=== PATIENT | female | born 1930 | race Caucasian/White ===

== ENCOUNTER 2017-11-28 11:32 | Inpatient (IN) ==
[2017-11-28] MEDS ORDERED: Melatonin 5 MG Tablet PO PRN (15:21)
[2017-11-28] MEDS ORDERED: Aluminum/Magnesium/Simethacone Susp 30 ML UDC PO PRN (15:21)
[2017-11-28] MEDS: Acetaminophen 325 MG Tablet PO PRN (21:00)
[2017-11-29 09:03] LABS: Calcium 8.7 mg/dL (8.5-10.1); Carbon Dioxide 28.2 meq/L (21.0-32.0); Potassium 4.5 meq/L (3.5-5.1)
[2017-11-29 09:07] LABS: Chol/HDL Ratio 4.26 Ratio; HDL Cholesterol 28.4 mg/dL (40.0-60.0)
[2017-11-29] MEDS: Acetaminophen 325 MG Tablet PO PRN ×3 (09:07→23:06)
[2017-11-29] MEDS: Furosemide 20 MG Tablet PO SCH (09:07)
[2017-11-29] MEDS: Spironolactone 25 MG Tablet PO SCH (09:09)
[2017-11-29] MEDS: Docusate Sodium 100 MG Capsule PO SCH (09:09)
--- NOTE | 2017-11-29 12:25 | P.HPPSY ---
Provisional Diagnosis Admission Date: November 28, 2017 15:12 Competence Certification of Person's Competence To Provide Express and Informed Consent I have personally examined Sindi Roblero, a person being served at [facility] on, November 29, 2017 1221. Express and informed consent means consent voluntarily given in writing, by a competent person, after sufficient explanation and disclosure of the subject matter involved to enable the person to make a knowing and willful decision without any element of force, fraud, deceit, duress, or other form of constraint or coercion. This person is 18 years of age or older, is not now known to be incompetent to consent to treatment with a guardian advocate, and does not have a health care surrogate or proxy currently making medical treatment decisions. I have found this person to be one of the following: [] Competent to provide express and informed consent, as defined above, for voluntary admission to this facility and is competent to provide express and informed consent for treatment. He/she has the consistent capacity to make well reasoned, willful, and knowing decisions concerning his or her medical or mental health treatment. The person fully and consistently understands the purpose of the admission for examination/placement and is fully capable of personally exercising all rights assured [place] [] Incompetent to provide express and informed consent to voluntary admission, and this is incompetent to provide express and informed consent to treatment. The person must be transferred to involuntary status and a petition for a guardian advocate filed with the Circuit Court. [X] Refusing to provide express and informed consent to voluntary admission but is competent to provide express and informed consent for treatment. The person must be discharged or transferred to involuntary status. Form shall be completed within 24 hours of a person's arrival at the receiving facility and filed in the clinical record of each person: 1. Admitted on a voluntary basis 2. Permitted to provide express and informed consent to his/her own treatment 3. Allowed to transfer from involuntary to voluntary status 4. Prior to permitting a person to consent to his or her own treatment after having been previously found incompetent to consent to treatment. History of Present Illness Capacity: Has capacity Chief Complaint: see below History of Present Illness: Patient is an 87-year-old female admitted for a suicidal gesture. Per record [facility] at home she placed the drill next her heart and said she wanted to . Today, patient says she was in a fog he does not remember that event. She denies a psychiatric history. Denies any history of suicide attempts. Says she has been feeling mildly confused lately. Memory not formally evaluated that she is oriented 3 though slow to respond to this interview. She denies recent depressed mood, low energy. She does admit to poor sleep. past psych: denies - Inpatient Certification I certify that the inpatient services were ordered in accordance with Medicare regulations governing the order. This includes certification that hospital inpatient services are reasonable and necessary and in the case of services not specified as inpatient-only under 42 CFR 419.22(n), that they are appropriately provided as inpatient services in accordance to with the 2-midnight benchmark under 43 CFR 412.3(e) I certify that inpatient psychiatric hospital services are medically necessary. Evaluation and treatment and/or diagnostic testing are expected to improve the patient's condition. The patient needs on a daily basis, active treatment furnished directly by or requiring the supervision of inpatient psychiatric facility personnel. Estimated Total Length of Stay (Days): 7 Plans for Post Hospital Care: Not yet determined PMF - History History Provided By: Patient - Tobacco History Second Hand Smoke Exposure: No Smoking Status: Never smoker - Alcohol History How Often Do You Have a Drink Containing Alcohol: Never - Substance Use History Substance History: No History of Abuse - Travel History Recent Travel in the [place] Within the Last 8 Weeks: No Recent Travel Out of the Country Within the Last 8 Weeks: No Medications and Allergies Active Medications: Active Medications Acetaminophen (Tylenol) 650 mg PO Q4H PRN PRN Reason: PAIN 1-10 AND/OR FEVER >101F Last Admin: 11/29/17 09:07 Dose: 650 mg Al Hydrox/Mg Hydrox/Simethicone (Mag-Al Plus Susp Liq) 30 ml PO Q6H PRN PRN Reason: DYSPEPSIA Al Hydroxide/Mg Hydroxide (Milk Of Magnesia Liq) 30 ml PO Q12H PRN PRN Reason: Mild Constipation Last Admin: 11/29/17 11:02 Dose: 30 ml Al Hydroxide/Mg Hydroxide (Milk Of Magnesia Liq) 30 ml PO DAILY PRN PRN Reason: Constipation Carvedilol (Coreg) 3.125 mg PO BID [facility] Last Admin: 11/29/17 09:10 Dose: 3.125 mg Diphenhydramine HCl (Benadryl) 25 mg PO HS PRN PRN Reason: INSOMNIA Last Admin: 11/28/17 21:01 Dose: 25 mg Docusate Sodium (Colace) 100 mg PO DAILY [facility] Last Admin: 11/29/17 09:09 Dose: 100 mg Fluticasone Propionate (Flonase Nasal [place]) 2 spray EACH NARE DAILY [facility] Last Admin: 11/29/17 09:10 Dose: 2 spray Furosemide (Lasix) 20 mg PO DAILY [facility] Last Admin: 11/29/17 09:07 Dose: 20 mg Losartan Potassium (Cozaar) 25 mg PO BID [facility] Last Admin: 11/29/17 09:10 Dose: 25 mg Spironolactone (Aldactone) 12.5 mg PO DAILY [facility] Last Admin: 11/29/17 09:09 Dose: 12.5 mg Allergies Allergy/AdvReac Type Severity Reaction Status Date / Time codeine Allergy Mild Unverified 10/28/16 17:19 ENVIRONMENTAL Allergy Mild Uncoded 09/27/06 23:17 No Known Allergies Allergy Mild Uncoded 09/27/06 23:15 Home Medications Medication Instructions Recorded Confirmed Type carvedilol 3.125 mg PO BID 11/28/17 11/28/17 History docusate sodium 100 mg PO DAILY 11/28/17 11/28/17 History fluticasone 2 spray INTRANASAL DAILY 11/28/17 11/28/17 History furosemide 20 mg PO DAILY 11/28/17 11/28/17 History hydrocodone-acetaminophen 1 tab PO Q4H PRN 11/28/17 11/28/17 History losartan 25 mg PO BID 11/28/17 11/28/17 History magnesium hydroxide [Milk of 30 ml PO DAILY PRN 11/28/17 11/28/17 History Magnesia] polyethylene glycol 3350 17 g PO Q4HR 11/28/17 11/28/17 History spironolactone 12.5 mg PO DAILY 11/28/17 11/28/17 History tuberculin PPD [Tubersol] WEEKLY 11/28/17 History Results - Labs CBC & Chem 7: 11/29/17 07:21 Labs: Laboratory Results - last 24 hr 11/29/17 07:21 Sodium 139 Potassium 4.5 Chloride 104 Carbon Dioxide 28.2 Anion Gap 7 BUN 19 H Creatinine 1.03 H Estimated GFR 51 L Random Glucose 86 Calcium 8.7 Triglycerides 121 Cholesterol 121 LDL Cholesterol, Calc 68 HDL Cholesterol 28.4 L Cholesterol/HDL Ratio 4.26 Exam Vital signs: Vital Signs 11/28/17 17:39 11/29/17 05:44 Temperature 97.3 F L 98.8 F Pulse Rate 73 71 Respiratory Rate 18 18 Blood Pressure 115/59 L 140/68 Pulse Oximetry 98 98 Intake & Output 11/28/17 11/29/17 11/29/17 18:59 06:59 18:59 Weight 58.513 kg Other: Weight On Admission 58.5 kg Mental Status Examination Appearance: Disheveled Consciousness: Alert Orientation: Person, Place, Date/Time Motor Activity: Normal gait Speech: Unremarkable Language: Adequate Fund of Knowledge: Adequate Attention and Concentration: Adequate Memory: Unremarkable Mood: Anxious Affect: Anxious Thought Process & Associations: Disorganized Thought Content: Appropriate Hallucination Type: None Delusion Type: None Suicidal Ideation: No Suicidal Plan: No Suicidal Intention: No Homicidal Ideation: No Homicidal Plan: No Homicidal Intention: No Insight: Poor Judgment: Poor Assessment and Plan - Assessment (1) Major depressive disorder, single episode, severe without psychotic features Code(s): F32.2 - Major depressive disorder, single episode, severe without psychotic features Status: Acute - Plan Plan: Estimated LOS: [] days Patient gives consent for remeron 7.5mg po qhs. For sleep and possible depression. Justification for Continued Inpatient Stay: Patient would decompensate in a less restrictive setting
--- NOTE | 2017-11-29 15:38 | P.CON ---
History of Present Illness Service: [facility] Consult date: 11/29/17 Requesting Physician: Guerrero Parker Reason for Consult: CHF, Primary Care Provider: UNKNOWN Chief Complaint: I have not been sleeping History of Present Illness: Patient is an 87-year-old female with past medical history of CHF, EF of 30-35% , anemia, HTN, DM 2, cardiomyopathy, GERD who initially came in to [facility] under [place] act secondary to suicidal ideation. Per review of record patient is attempting to put a drill on her heart and making statements of wanting to hurt herself/kill herself. She is now admitted to inpatient psychiatry unit for further evaluation. Consulted for assistance with medical management. Review of records from previous hospital, UDS negative, UA negative, TSH within normal Chest x-ray showed cardiomegaly with interstitial edema Patient on Lasix and spironolactone. Patient seen and examined today. Reports she is doing well. States that she has not been sleeping for a while but probably contributed to her saying she wanted to kill herself. States she has diabetes but been managing it with dietary modification. Denies any SI/HI. Denies pain and discomfort. Denies SOB/ dyspnea. Denies chest pain, palpitations, headaches, dizziness. Denies fevers, chills, n/v/d. Denies dysuria. Review of Systems All other systems reviewed negative except as stated in HPI PMFSH - History History Provided By: Patient - Medical History Medical History: Medical History (Last Updated 11/29/17 @ 15:34 by VAUGHN Castro) CHF (congestive heart failure) DM2 (diabetes mellitus, type 2) GERD (gastroesophageal reflux disease) HTN (hypertension) - Surgical History Surgical History: Surgical History (Last Updated 11/29/17 @ 16:29 by VAUGHN Castro) History of throat surgery - Family History Family History: Family History (Last Updated 11/29/17 @ 15:35 by VAUGHN Castro) Other ETOH abuse - Social History I have reviewed the patient's Social History: Yes - Tobacco History Second Hand Smoke Exposure: No Smoking Status: Former smoker Number of Pack Years (if former smoker): 20 (Quit 40years ago) - Alcohol History How Often Do You Have a Drink Containing Alcohol: Never - Substance Use History Substance History: No History of Abuse - Travel History Recent Travel in the [facility] Within the Last 8 Weeks: No Recent Travel Out of the Country Within the Last 8 Weeks: No Medications and Allergies Active Medications: Active Medications Acetaminophen (Tylenol) 650 mg PO Q4H PRN PRN Reason: PAIN 1-10 AND/OR FEVER >101F Last Admin: 11/29/17 09:07 Dose: 650 mg Al Hydrox/Mg Hydrox/Simethicone (Mag-Al Plus Susp Liq) 30 ml PO Q6H PRN PRN Reason: DYSPEPSIA Al Hydroxide/Mg Hydroxide (Milk Of Magnesia Liq) 30 ml PO Q12H PRN PRN Reason: Mild Constipation Last Admin: 11/29/17 11:02 Dose: 30 ml Al Hydroxide/Mg Hydroxide (Milk Of Magnesia Liq) 30 ml PO DAILY PRN PRN Reason: Constipation Carvedilol (Coreg) 3.125 mg PO BID [facility] Last Admin: 11/29/17 09:10 Dose: 3.125 mg Diphenhydramine HCl (Benadryl) 25 mg PO HS PRN PRN Reason: INSOMNIA Last Admin: 11/28/17 21:01 Dose: 25 mg Docusate Sodium (Colace) 100 mg PO DAILY [facility] Last Admin: 11/29/17 09:09 Dose: 100 mg Fluticasone Propionate (Flonase Nasal [place]) 2 spray EACH NARE DAILY [facility] Last Admin: 11/29/17 09:10 Dose: 2 spray Furosemide (Lasix) 20 mg PO DAILY [facility] Last Admin: 11/29/17 09:07 Dose: 20 mg Losartan Potassium (Cozaar) 25 mg PO BID [facility] Last Admin: 11/29/17 09:10 Dose: 25 mg Mirtazapine (Remeron) 7.5 mg PO [facility] Spironolactone (Aldactone) 12.5 mg PO DAILY [facility] Last Admin: 11/29/17 09:09 Dose: 12.5 mg Allergies Allergy/AdvReac Type Severity Reaction Status Date / Time codeine Allergy Mild Unverified 10/28/16 17:19 ENVIRONMENTAL Allergy Mild Uncoded 09/27/06 23:17 No Known Allergies Allergy Mild Uncoded 09/27/06 23:15 Home Medications Medication Instructions Recorded Confirmed Type carvedilol 3.125 mg PO BID 11/28/17 11/28/17 History docusate sodium 100 mg PO DAILY 11/28/17 11/28/17 History fluticasone 2 spray INTRANASAL DAILY 11/28/17 11/28/17 History furosemide 20 mg PO DAILY 11/28/17 11/28/17 History hydrocodone-acetaminophen 1 tab PO Q4H PRN 11/28/17 11/28/17 History losartan 25 mg PO BID 11/28/17 11/28/17 History magnesium hydroxide [Milk of 30 ml PO DAILY PRN 11/28/17 11/28/17 History Magnesia] polyethylene glycol 3350 17 g PO Q4HR 11/28/17 11/28/17 History spironolactone 12.5 mg PO DAILY 11/28/17 11/28/17 History tuberculin PPD [Tubersol] WEEKLY 11/28/17 History Physical Exam Vital signs: Vital Signs 11/28/17 17:39 11/29/17 05:44 Temperature 97.3 F L 98.8 F Pulse Rate 73 71 Respiratory Rate 18 18 Blood Pressure 115/59 L 140/68 Pulse Oximetry 98 98 Intake & Output 11/28/17 11/29/17 11/29/17 18:59 06:59 18:59 Weight 58.513 kg Other: Weight On Admission 58.5 kg Narrative: GENERAL: This is a well-nourished, well-developed patient, in no apparent distress. SKIN: Warm and dry HEENT: Normocephalic. Pupils equal round and reactive. Nose without bleeding. Airway patent. NECK: Trachea midline. CARDIOVASCULAR: Regular rate and rhythm without murmurs, gallops, or rubs. RESPIRATORY: Clear to auscultation. Breath sounds equal bilaterally. No wheezes , rales, or rhonchi. GASTROINTESTINAL: Abdomen soft, non-tender, nondistended. Bowel Sounds normoactive x4. MUSCULOSKELETAL: Extremities without clubbing, cyanosis, or edema. NEUROLOGICAL: Awake and alert. No focal neuro deficit. Moves all extremities. Normal speech. Assessment and Plan - Plan Patient is an 87-year-old female with past medical history of CHF, EF of 30-35% , anemia, HTN, DM 2, cardiomyopathy, GERD who initially came in to [facility] under [place] secondary to suicidal ideation. Per review of record patient is attempting to put a drill on her heart and making statements of wanting to hurt herself/kill herself. She is now admitted to inpatient psychiatry unit for further evaluation. Consulted for assistance with medical management. SI, Depression -Managed by psychiatry team Congestive heart failure, EF 30-35% Cardiomyopathy HTN -Per review of record from previous hospital UDS negative, UA negative, TSH within normal -Per review of records from previous hospital chest x-ray showed cardiomegaly with interstitial edema -Continue Lasix, spironolactone -Continue home medication -Monitor BMP -Monitor for worsening condition Acute renal insufficiency -Possibly secondary to Lasix and spironolactone use -Avoid other nephrotoxins -Monitor renal indicis Anemia, possibly of chronic disease Microcytic -Monitor H&H intermittently Borderline diabetes -Hemoglobin A1c 6.0 -Patient wanted to be on diabetic diet DVT prop, early ambulation Code Status: Full code Discussed Condition With: Patient, nurse Discharge Planning: DC disposition by primary team
[2017-11-29] MEDS: Mirtazapine 15 MG Tablet PO SCH (20:42)
[2017-11-30] MEDS: Acetaminophen 325 MG Tablet PO PRN ×2 (06:44→11:59)
[2017-11-30] MEDS: Spironolactone 25 MG Tablet PO SCH (10:12)
[2017-11-30] MEDS: Docusate Sodium 100 MG Capsule PO SCH (10:12)
[2017-11-30] MEDS: Furosemide 20 MG Tablet PO SCH (10:12)
[2017-11-30] MEDS: Escitalopram 10 MG Tablet PO SCH (11:59)
--- NOTE | 2017-11-30 14:40 | P.PN ---
Subjective Interval history: Follow-up visit CHF, GERD, HTN. Patient seen and examined today sitting in a chair. Reports she is doing okay. Discussed with patient elevated BP this a.m. states that he took all the medications that have given her. Repeat her blood pressure while sitting in the chair. BP 144/74. Denies pain and discomfort. Denies SOB/ dyspnea. Denies chest pain, palpitations, headaches, dizziness. Denies fevers, chills, n/v/d. Denies dysuria. Physical Exam Vital signs: Vital Signs 11/30/17 06:00 Temperature 97.7 F Pulse Rate 74 Respiratory Rate 18 Blood Pressure 173/73 H Pulse Oximetry 97 Intake & Output 11/29/17 11/30/17 11/30/17 18:59 06:59 18:59 Intake Total 600 / 600 Balance 600 / 600 Weight 61 kg Intake: Oral 600 / 600 Narrative: GENERAL: This is a well-nourished, well-developed patient, in no apparent distress. SKIN: Warm and dry HEENT: Normocephalic. Pupils equal round and reactive. Nose without bleeding. Airway patent. NECK: Trachea midline. CARDIOVASCULAR: Regular rate and rhythm without murmurs, gallops, or rubs. RESPIRATORY: Clear to auscultation. Breath sounds equal bilaterally. No wheezes , rales, or rhonchi. GASTROINTESTINAL: Abdomen soft, non-tender, nondistended. Bowel Sounds normoactive x4. MUSCULOSKELETAL: Extremities without clubbing, cyanosis, or edema. NEUROLOGICAL: Awake and alert. No focal neuro deficit. Moves all extremities. Normal speech. Results - Labs CBC & Chem 7: 11/29/17 07:21 Assessment and Plan - Plan Patient is an 87-year-old female with past medical history of CHF, EF of 30-35% , anemia, HTN, DM 2, cardiomyopathy, GERD who initially came in to [facility] under [place] [facility] secondary to suicidal ideation. Per review of record patient is attempting to put a drill on her heart and making statements of wanting to hurt herself/kill herself. She is now admitted to inpatient psychiatry unit for further evaluation. Consulted for assistance with medical management. SI, Depression -Managed by psychiatry team Congestive heart failure, EF 30-35% Cardiomyopathy HTN -Per review of record from previous hospital UDS negative, UA negative, TSH within normal -Per review of records from previous hospital chest x-ray showed cardiomegaly with interstitial edema -Continue Lasix, spironolactone -Continue home medication -Clonidine PRN added, hypertensive this am -Monitor BP trend. Acute renal insufficiency -Possibly secondary to Lasix and spironolactone use -Avoid other nephrotoxins -Monitor renal indicis Anemia, possibly of chronic disease Microcytic -Monitor H&H intermittently Borderline diabetes -Hemoglobin A1c 6.0 -Patient wanted to be on diabetic diet DVT prop, early ambulation Code Status: Full code Discussed Condition With: Patient, nursing Discharge Planning: DC disposition by primary team
--- NOTE | 2017-11-30 18:37 | P.PNPSY ---
Subjective Chief Complaint: see below Remarks: Patient seen for follow up; chart reviewed. Discussion with nursing staff reported that patient was admitted for suicidal gesture which she placed a drill next her heart said that she wanted to . Patient was found sitting hospital bed noted B, cooperative. Patient states that she had taken medication less evening which caused her to have "high anxiety". Patient states that she has had recent medical problems which involve recent eye surgery , toe surgery, recently having needed a PEG tube which was now discontinued and now dealing with "bowel adjustments". Patient states her mood has been "up and down" but denying any suicide ideations at this time. Patient mentions that she made a suicidal statement due to recent changes in her health. She states that she has able to go forward, although continues report having disturbed sleep but denying any perceptional disturbances. Review of Systems All other systems reviewed negative except as stated in HPI Mental Status Examination Appearance: Appropriate Consciousness: Alert Orientation: Person, Place, Date/Time Motor Activity: Normal gait Speech: Unremarkable Language: Adequate Fund of Knowledge: Adequate Attention and Concentration: Adequate Memory: Unremarkable Mood: Anxious Affect: Anxious Thought Process & Associations: Circumstantial Thought Content: Appropriate Hallucination Type: None Delusion Type: None Suicidal Ideation: No Suicidal Plan: No Suicidal Intention: No Homicidal Ideation: No Homicidal Plan: No Homicidal Intention: No Insight: Poor Judgment: Poor Assessment and Plan - Assessment (1) Major depressive disorder, single episode, severe without psychotic features Code(s): F32.2 - Major depressive disorder, single episode, severe without psychotic features Status: Acute - Plan Plan: Patient with recent depressive symptoms secondary to recent medical illnesses. Patient also reporting disturbed sleep. We will start temazepam 7.5 mg nightly for sleep disturbance, and we will start Lexapro 10 mg p.o. daily for depression. We will continue to monitor mood and behavior. Discharge planning in progress. Justification for Continued Inpatient Stay: At risk of further decompensation at lower level of care.
[2017-11-30] MEDS: Mirtazapine 15 MG Tablet PO SCH (21:05)
[2017-12-01 07:38] LABS: Potassium 4.1 meq/L (3.5-5.1)
[2017-12-01 07:41] LABS: Calcium 8.7 mg/dL (8.5-10.1); Carbon Dioxide 26.9 meq/L (21.0-32.0)
--- NOTE | 2017-12-01 08:33 | ECG ---
Date Performed: 11/30/2017 Time Performed: 13:23:14 PTAGE: 87 years EKG: NORMAL Sinus rhythm Intraventricular conduction delay SEPTAL MYOCARDIAL INFARCTION , OF INDETERMINATE AGE Compared to pr evious tracing the patient has new septal MO pattern and Intraventricular conduction delay ABNORMAL E CG PREVIOUS TRACING : 09/27/2006 12.12 DOCTOR: Clarissa Rubin Interpretating Date/Time 12/01/2017 08:31:45
[2017-12-01] MEDS: Spironolactone 25 MG Tablet PO SCH (09:41)
[2017-12-01] MEDS: Docusate Sodium 100 MG Capsule PO SCH (09:42)
[2017-12-01] MEDS: Furosemide 20 MG Tablet PO SCH (09:43)
[2017-12-01] MEDS: Escitalopram 10 MG Tablet PO SCH (09:46)
--- NOTE | 2017-12-01 13:39 | P.PNIM ---
Subjective Interval history: Follow-up CHF, hypertension, GERD. Pt seen and evaluated with the Nurse, Pt sitting at the side of the bed, c/o of some nasal stuffiness and dripping, with some coughing. Denies any fever or chills. Patient stated he is using a Flonase spray but only once a day. Discussed it will be increased to 2 x day. Pt denies any headache or dizziness, denies any chest pain or shortness of breath, denies any nausea or vomiting. Physical Exam Vital signs: Vital Signs 11/30/17 21:03 12/01/17 06:00 Temperature 98.3 F Pulse Rate 78 68 Respiratory Rate 14 Blood Pressure 159/79 H 116/57 L Pulse Oximetry 94 L Intake & Output 11/30/17 12/01/17 12/01/17 18:59 06:59 18:59 Intake Total 600 / 600 340 / 340 Balance 600 / 600 340 / 340 Intake: Oral 600 / 600 240 / 240 Oral Supplement 100 / 100 Other: # Voids 1 Narrative: GENERAL: well nourished, well developed lady in no apparent distress SKIN: Warm and dry. HEAD: Atraumatic. Normocephalic. EYES: Pupils equal and round. No scleral icterus. No injection or drainage. ENT: No nasal bleeding or discharge. Mucous membranes pink and moist. NECK: Trachea midline. No JVD. CARDIOVASCULAR: Regular rate and rhythm. no edema RESPIRATORY: No accessory muscle use. Clear to auscultation. Breath sounds equal bilaterally. GASTROINTESTINAL: Abdomen soft, non-tender, nondistended. Hepatic and splenic margins not palpable. MUSCULOSKELETAL: Extremities without clubbing, cyanosis, or edema. No obvious deformities. NEUROLOGICAL: Awake and alert. No obvious cranial nerve deficits. Motor grossly within normal limits. Five out of 5 muscle strength in the arms and legs. Normal speech. PSYCHIATRIC: Appropriate mood and affect; insight and judgment poor. Results - Labs CBC & Chem 7: 12/01/17 06:45 Laboratory Results - last 24 hr 12/01/17 06:45 Sodium 137 Potassium 4.1 Chloride 101 Carbon Dioxide 26.9 Anion Gap 9 BUN 17 Creatinine 0.96 Estimated GFR 55 L Random Glucose 91 Calcium 8.7 Assessment and Plan - Assessment (1) Major depressive disorder, single episode, severe without psychotic features Code(s): F32.2 - Major depressive disorder, single episode, severe without psychotic features Status: Acute (2) CHF (congestive heart failure) Code(s): I50.9 - Heart failure, unspecified Status: Acute (3) HTN (hypertension) Code(s): I10 - Essential (primary) hypertension Status: Acute (4) Cardiomyopathy Code(s): I42.9 - Cardiomyopathy, unspecified Status: Acute (5) Borderline diabetes mellitus Code(s): R73.03 - Prediabetes Status: Acute - Plan Patient is an 87-year-old female with past medical history of CHF, EF of 30-35% , anemia, HTN, DM 2, cardiomyopathy, GERD who initially came in to [facility] under [place] act secondary to suicidal ideation. Per review of record patient is attempting to put a drill on her heart and making statements of wanting to hurt herself/kill herself. She is now admitted to inpatient psychiatry unit for further evaluation. Consulted for assistance with medical management. DAVID, OSMIN -Managed by psychiatry team Congestive heart failure, EF 30-35% Cardiomyopathy HTN -Per review of record from previous hospital UDS negative, UA negative, TSH within normal -Per review of records from previous hospital chest x-ray showed cardiomegaly with interstitial edema -Continue Lasix, spironolactone -Continue coreg, & Losartan -Clonidine PRN added, hypertensive this am -Monitor BP trend. monitor BMP Acute renal insufficiency -creatinine 0.96 today 12/01 -Possibly secondary to Lasix and spironolactone use -Avoid other nephrotoxins -Monitor renal function Anemia, possibly of chronic disease Microcytic -Monitor CBC Borderline diabetes -diet controlled -Hemoglobin A1c 6.0 -diabetic diet Seasonal Allergy -increase dose for fluticasone spray -add cetirizine -monitor signs and symptoms DVT prophylaxis, early ambulation
[2017-12-01] MEDS: Mirtazapine 15 MG Tablet PO SCH (21:18)
--- NOTE | 2017-12-01 23:46 | P.PNPSY ---
Subjective Chief Complaint: see below Remarks: Patient seen for follow up; chart reviewed. Discussion with nursing staff reported patient noted to be anxious, slept well last evening, denying any suicide ideations. Patient has been noted to be visible on the unit noted B, cooperative. Patient states feeling better, denied feeling depressed today states that she slept well last night which she was happy about. Patient continues denying suicide ideations at this time, reports tolerating medications well. Patient denies any perceptional services or delusions at this time. She mentions that she is planning to return to live back with her daughter upon discharge. ([place] [phone]) Review of Systems All other systems reviewed negative except as stated in HPI Mental Status Examination Appearance: Appropriate Consciousness: Alert Orientation: Person, Place, Date/Time Motor Activity: Normal gait Speech: Unremarkable Language: Adequate Fund of Knowledge: Adequate Attention and Concentration: Adequate Memory: Unremarkable Mood: Appropriate, Good Affect: Appropriate Thought Process & Associations: Intact, Linear Thought Content: Appropriate Hallucination Type: None Delusion Type: None Suicidal Ideation: No Suicidal Plan: No Suicidal Intention: No Homicidal Ideation: No Homicidal Plan: No Homicidal Intention: No Insight: Poor Judgment: Poor Assessment and Plan - Assessment (1) Major depressive disorder, single episode, severe without psychotic features Code(s): F32.2 - Major depressive disorder, single episode, severe without psychotic features Status: Acute - Plan Plan: Patient noted with improved mood, feeling less depressed denying any suicide ideations and slept well last evening. We will continue to monitor mood and behavior. We will continue current treatment. Discharge planning a progress. Justification for Continued Inpatient Stay: At risk of further decompensation at lower level of care.
[2017-12-02 06:46] VITALS: BP 128/67; PULSE 79; RESP 17; TEMP 98.5; O2SAT 96
[2017-12-02 07:15] LABS: Hemoglobin 10.4 gm/dL (11.6-15.3); Mean Corpuscular HGB Conc 31.6 % (32.0-36.0); Mean Corpuscular Hemoglobin 25.2 pg (27.0-34.0); Mean Corpuscular Volume 79.8 fL (80.0-100.0); Mean Platelet Volume 8.2 fL (7.0-11.0); Platelet Count 438 th/mm3 (150-450); Red Blood Count 4.13 mil/mm3 (4.00-5.30); Red Cell Distribution Width 17.2 % (11.6-17.2); White Blood Count 7.5 th/mm3 (4.0-11.0)
[2017-12-02] MEDS: Spironolactone 25 MG Tablet PO SCH (10:26)
[2017-12-02] MEDS: Docusate Sodium 100 MG Capsule PO SCH (10:28)
[2017-12-02] MEDS: Furosemide 20 MG Tablet PO SCH (10:29)
[2017-12-02] MEDS: Escitalopram 10 MG Tablet PO SCH (10:31)
[2017-12-02] MEDS: Acetaminophen 325 MG Tablet PO PRN (11:50)
--- NOTE | 2017-12-02 13:06 | P.PNIM ---
Subjective Interval history: Follow-up for CHF, hypertension, GERD and constipation. Pt seen and examined sitting int he chair, complaints of constipation and slight abdominal pain. Pt stated did not have bowel movement for at least 2 days, stated feel full of gas. Pt still complaints of stuffy nose and congestion but is a lot better than yesterday. Pt stated was able to sleep a lot better last night. Has been using the nasal spray .Patient denies any chest pain or shortness of breath, denies any fever or chills. Denies any nausea, vomiting. Physical Exam Vital signs: Vital Signs 12/01/17 17:53 12/02/17 06:00 Temperature 98.3 F 98.5 F Pulse Rate 72 79 Respiratory Rate 16 17 Blood Pressure 144/69 H 128/67 Pulse Oximetry 99 96 Intake & Output 12/01/17 12/02/17 12/02/17 18:59 06:59 18:59 Intake Total 960 / 960 340 / 340 Balance 960 / 960 340 / 340 Intake: Oral 960 / 960 240 / 240 Oral Supplement 100 / 100 Other: # Voids 4 2 1 Date of Last Bowel Movement 12/01/17 # Bowel Movements 1 0 Narrative: GENERAL: well nourished, well developed lady in no apparent distress SKIN: Warm and dry. HEAD: Atraumatic. Normocephalic. EYES: Pupils equal and round. No scleral icterus. No injection or drainage. ENT: No nasal bleeding or discharge. Mucous membranes pink and moist. NECK: Trachea midline. No JVD. CARDIOVASCULAR: Regular rate and rhythm. no edema RESPIRATORY: No accessory muscle use. Clear to auscultation. Breath sounds equal bilaterally. GASTROINTESTINAL: Abdomen soft, slight-tenderness on palpation, nondistended. Hepatic and splenic margins not palpable. MUSCULOSKELETAL: Extremities without clubbing, cyanosis, or edema. No obvious deformities. NEUROLOGICAL: Awake and alert. No obvious cranial nerve deficits. Motor grossly within normal limits. Five out of 5 muscle strength in the arms and legs. Normal speech. PSYCHIATRIC: Appropriate mood and affect; insight and judgment non reliable. Results - Labs CBC & Chem 7: 12/02/17 06:20 12/01/17 06:45 Laboratory Results - last 24 hr 12/02/17 06:20 WBC 7.5 RBC 4.13 Hgb 10.4 L Hct 33.0 L MCV 79.8 L MCH 25.2 L MCHC 31.6 L RDW 17.2 Plt Count 438 MPV 8.2 Assessment and Plan - Assessment (1) Major depressive disorder, single episode, severe without psychotic features Code(s): F32.2 - Major depressive disorder, single episode, severe without psychotic features Status: Acute (2) CHF (congestive heart failure) Code(s): I50.9 - Heart failure, unspecified Status: Acute (3) HTN (hypertension) Code(s): I10 - Essential (primary) hypertension Status: Acute (4) Cardiomyopathy Code(s): I42.9 - Cardiomyopathy, unspecified Status: Acute (5) Borderline diabetes mellitus Code(s): R73.03 - Prediabetes Status: Acute - Plan Patient is an 87-year-old female with past medical history of CHF, EF of 30-35% , anemia, HTN, DM 2, cardiomyopathy, GERD who initially came in to [facility] under [place] act secondary to suicidal ideation. Per review of record patient is attempting to put a drill on her heart and making statements of wanting to hurt herself/kill herself. She is now admitted to inpatient psychiatry unit for further evaluation. Consulted for assistance with medical management. OSMIN HERNANDEZ -Managed by psychiatry team Congestive heart failure, EF 30-35% Cardiomyopathy HTN -Per review of record from previous hospital UDS negative, UA negative, TSH within normal -Per review of records from previous hospital chest x-ray showed cardiomegaly with interstitial edema -Continue Lasix, spironolactone -Continue coreg, & Losartan -continue Clonidine PRN, will adjust Losartan for increased use of prn med -Monitor BP trend. monitor BMP Acute renal insufficiency -creatinine 0.96 on 12/01 -Possibly secondary to Lasix and spironolactone use -Avoid other nephrotoxins -Monitor renal function Anemia, possibly of chronic disease Microcytic -Monitor CBC Borderline diabetes -diet controlled -Hemoglobin A1c 6.0 -diabetic diet Seasonal Allergy -continue increased dose for fluticasone spray -continue cetirizine -monitor signs and symptoms, improving Constipation - prn Milk of Magnesia -increase docusate sodium, monitor DVT prophylaxis: increase ambulation Discussed Condition With: patient and nurse
--- NOTE | 2017-12-02 18:18 | P.DSPSY ---
Psychiatry Discharge Summary Inpatient Psychiatric care?: Yes Advance Directives: No Reason for Unknown:: Other Mental Health Advance Directive: No Health Care Proxy: No - Admission Admission Date: November 28, 2017 15:12 - Admission Diagnosis (1) Major depressive disorder, single episode, severe without psychotic features Code(s): F32.2 - Major depressive disorder, single episode, severe without psychotic features Brief History: Patient is an 87-year-old female admitted for a suicidal gesture. Per record [facility] at home she placed the drill next her heart and said she wanted to . Today, patient says she was in a fog he does not remember that event. She denies a psychiatric history. Denies any history of suicide attempts. Says she has been feeling mildly confused lately. Memory not formally evaluated that she is oriented 3 though slow to respond to this interview. She denies recent depressed mood, low energy. She does admit to poor sleep. past psych: denies Tobacco Use In Past 30 Days: No How Often Do You Have a Drink Containing Alcohol: Never Hospital Course: Patient is an 87-year-old female with past medical history of CHF, EF of 30-35% , anemia, HTN, DM 2, cardiomyopathy, GERD who initially came in to [facility] under [place] act secondary to suicidal ideation. Patient was resumed on medications which she tolerated well with no notable adverse drug reactions. She was observed by staff not to have had any behavioral disturbances, noted with cessation of suicidal ideation and denied any homicidal ideations. Patient was able to reach and maintain stable mood during admission and was noted to participate with staff adequately. Patient was noted to participate in self-care, engaged with staff and maintaining adequate hygiene. Patient reported feeling hopeful, future oriented and motivated to return back home and to continue outpatient follow-up. Treatment team was able to set up outpatient follow-up appointments which patient can continue for continuity of care. Upon discharge patient stated feeling "good" reported feeling well with treatment, agreed to continue treatment and return home. Patient from a mental health perspective no longer met criteria for continued inpatient level of care. Patient denied any SI, HI, perceptual disturbances or delusions. Weighing the acute, chronic, and protective factors and based on the available evidence, I [facility] former to a reasonable degree of medical certainty that the patient is at low imminent risk of harm to self or others for mental illness as defined under the [place] act and her level of function is adequate as observed on the unit for planned level of outpatient care. Patient was counseled regarding warning signs for need to return to the psychiatric emergency room as part of the general safety plan. Patient advised to call 911 or go to nearest ED in case of emergency. Patient agrees with plan. - Discharge Discharge Date: 12/02/17 Discharge Disposition: Home - Discharge Instructions Discharge Diet: Heart Healthy Diet Activities You Can Perform: Weight Bearing As Tolerat - Discharge Time > 30 minutes Mental Status Examination Appearance: Appropriate Consciousness: Alert Orientation: Person, Place, Date/Time Motor Activity: Normal gait Speech: Unremarkable Language: Adequate Fund of Knowledge: Adequate Attention and Concentration: Adequate Memory: Unremarkable Mood: Appropriate, Good Affect: Appropriate Thought Process & Associations: Intact, Linear Thought Content: Appropriate Hallucination Type: None Delusion Type: None Suicidal Ideation: No Suicidal Plan: No Suicidal Intention: No Homicidal Ideation: No Homicidal Plan: No Homicidal Intention: No Insight: Poor Judgment: Impulsive Discharge/Advance Care Plan - Results Vital Signs: Last Vital Signs Temp 98.5 F 12/02/17 06:00 Pulse 79 12/02/17 06:00 Resp 17 12/02/17 06:00 BP 128/67 12/02/17 06:00 Pulse Ox 96 12/02/17 06:00 Lab Results: Abnormal Lab Results 12/02/17 06:20 WBC 7.5 RBC 4.13 Hgb 10.4 L Hct 33.0 L MCV 79.8 L MCH 25.2 L MCHC 31.6 L RDW 17.2 Plt Count 438 MPV 8.2 Laboratory Results Hemoglobin A1c 6.0 % (4.3-6.0) 11/29/17 07:21 Triglycerides 121 mg/dL (42-150) 11/29/17 07:21 Cholesterol 121 mg/dL (120-200) 11/29/17 07:21 LDL Cholesterol, Calc 68 mg/dL (0-99) 11/29/17 07:21 HDL Cholesterol 28.4 mg/dL (40.0-60.0) L 11/29/17 07:21 Summary of Procedures: none Pending Results: None - Medications Number of antipsychotic medications at discharge: 0 - Discharge Care Plan Goals to Promote Your Health: * To prevent worsening of your condition and complications * To maintain your health at the optimal level Directions to Meet Your Goals: Take your medications as prescribed Follow your dietary instruction Follow activity as directed Keep your appointments as scheduled Take your immunizations and boosters as scheduled If your symptoms worsen call your PCP, if no PCP go to Urgent Care Center or Emergency Room For 06/10 questions related to your inpatient stay or results of tests pending at discharge, please contact Dr. Marlo Galloway MD at Smoking is Dangerous to Your Health. Avoid second hand smoking
[2017-12-02] MEDS ORDERED: Docusate Sodium 100 MG Capsule PO SCH (21:00)
== END 2017-12-02 16:25 | disposition home or self-care (01) ==
LOC: H250 15:12
PROVIDERS: ADMIT Student in an Organized Health Care Education/Training Program; ATTEND Student in an Organized Health Care Education/Training Program